=== PATIENT | female | born 1995 | race Caucasian/White ===

== ENCOUNTER → 2017-05-05 | Outpatient (REF) | payer BC ==
[2017-05-05 18:51] LABS: MEAN CORPUSCULAR HEMOGLOBIN 30.6 pg (27.0-33.0); MEAN CORPUSCULAR HGB CONC 33.6 g/dl (32.0-36.5); MEAN CORPUSCULAR VOLUME 91.1 fl (80.0-96.0); PLATELET COUNT, AUTOMATED 278 10^3/uL (150-450); RED CELL DISTRIBUTION WIDTH 11.9 % (11.5-14.5)
[2017-05-05 19:11] LABS: HCG, SERUM QUANTITATIVE 1709 MIU/ML
[2017-05-06 10:28] LABS: HBsAg Prenatal NEGATIVE (NEGATIVE)
== END ==
LOC: M LAB REF 16:23
PROVIDERS: ATTEND Obstetrics & Gynecology
DX: O36.80X0 Pregnancy with inconclusive fetal viability, not applicable or unspecified (principal); Z3A.00 Weeks of gestation of pregnancy not specified

== ENCOUNTER 2017-05-20 17:27 | Emergency (ER) | payer BC, OTHER ==
[2017-05-20 19:15] LABS: KETONE, URINE AUTO RFX NEGATIVE (NEGATIVE); LEUKOCYTE ESTERASE UR AUTO RFX NEGATIVE (NEGATIVE); NITRITE, URINE AUTO RFX NEGATIVE (NEGATIVE); RBC, URINE AUTO RFX 1 /HPF (0-3); SPECIFIC GRAVITY UR AUTO RFX 1.011 (1.002-1.035); SQUAM EPITHELIAL CELL UR AURFX 1 /HPF (0-6); WBC, URINE AUTO RFX 1 /HPF (0-3)
[2017-05-20 19:31] LABS: BASO % 0.2 % (0.0-1.0); EOS % 0.2 % (0.0-3.0); HEMATOCRIT 42.1 % (36.0-47.0); HEMOGLOBIN 14.1 g/dl (12.0-16.0); IMMATURE GRANULOCYTE % 0.3 % (0-0); LYMPH # 2.5 10^3/uL (1.5-6.5); LYMPH % 19.7 % (24.0-44.0); MEAN CORPUSCULAR HEMOGLOBIN 30.6 pg (27.0-33.0); MEAN CORPUSCULAR HGB CONC 33.5 g/dl (32.0-36.5); MEAN CORPUSCULAR VOLUME 91.3 fl (80.0-96.0); MONO # 0.9 10^3/uL (0.0-0.8); MONO % 7.2 % (0.0-5.0); NEUTROPHILS # 9.1 10^3/uL (1.8-7.7); NEUTROPHILS % 72.4 % (36.0-66.0); PLATELET COUNT, AUTOMATED 299 10^3/uL (150-450); RED BLOOD COUNT 4.61 10^6/uL (4.00-5.40); RED CELL DISTRIBUTION WIDTH 11.7 % (11.5-14.5); WHITE BLOOD COUNT 12.6 10^3/uL (4.0-10.0)
[2017-05-20 19:57] LABS: ANION GAP 6 MEQ/L (8-16); BLOOD UREA NITROGEN 10 MG/DL (7-18); CALCIUM LEVEL 8.6 MG/DL (8.5-10.1); CARBON DIOXIDE LEVEL 29 MEQ/L (21-32); CHLORIDE LEVEL 105 MEQ/L (98-107); CREATININE FOR GFR 0.73 MG/DL (0.55-1.02); GLOMERULAR FILTRATION RATE > 60.0 (>60); GLUCOSE, FASTING 111 MG/DL (70-105); POTASSIUM SERUM 3.3 MEQ/L (3.5-5.1); SODIUM LEVEL 140 MEQ/L (136-145)
[2017-05-20] MEDS: ACETAMINOPHEN 325 MG TAB PO (20:11)
[2017-05-20 20:14] LABS: HCG, SERUM QUANTITATIVE 1871 MIU/ML
[2017-05-20 21:09] LABS: CHLAMYDIA DNA AMPLIFICATION NEGATIVE (NEGATIVE); GC DNA AMPLIFICATION NEGATIVE (NEGATIVE)
== END 2017-05-20 21:58 | disposition home or self-care (01) ==
LOC: M ED 17:27
DX: O03.4 Incomplete spontaneous abortion without complication (principal); N83.291 Other ovarian cyst, right side; Z79.899 Other long term (current) drug therapy
CPT/HCPCS: 76801

== ENCOUNTER → 2017-05-29 | Outpatient (CLI) | payer BC, OTHER ==
[2017-05-29 18:30] LABS: HCG, SERUM QUANTITATIVE 102 MIU/ML
== END ==
LOC: M WUC 13:13
DX: Z32.01 Encounter for pregnancy test, result positive (principal)
CPT/HCPCS: 84702

== ENCOUNTER → 2017-07-21 | Outpatient (CLI) | payer BC, OTHER ==
[2017-07-21 13:42] LABS: BASO % 0.2 % (0.0-1.0); EOS % 0.2 % (0.0-3.0); HEMATOCRIT 42.3 % (36.0-47.0); HEMOGLOBIN 14.1 g/dl (12.0-16.0); IMMATURE GRANULOCYTE % 0.4 % (0-3.0); LYMPH # 1.7 10^3/uL (1.5-6.5); LYMPH % 20.3 % (24.0-44.0); MEAN CORPUSCULAR HEMOGLOBIN 30.5 pg (27.0-33.0); MEAN CORPUSCULAR HGB CONC 33.3 g/dl (32.0-36.5); MEAN CORPUSCULAR VOLUME 91.4 fl (80.0-96.0); MONO # 0.6 10^3/uL (0.0-0.8); MONO % 7.2 % (0.0-5.0); NEUTROPHILS % 71.7 % (36.0-66.0); PLATELET COUNT, AUTOMATED 279 10^3/uL (150-450); RED BLOOD COUNT 4.63 10^6/uL (4.00-5.40); RED CELL DISTRIBUTION WIDTH 11.8 % (11.5-14.5); WHITE BLOOD COUNT 8.4 10^3/uL (4.0-10.0)
[2017-07-21 15:51] LABS: CHLAMYDIA DNA AMPLIFICATION NEGATIVE (NEGATIVE); GC DNA AMPLIFICATION NEGATIVE (NEGATIVE)
[2017-07-22 11:53] LABS: HBsAg Prenatal NEGATIVE (NEGATIVE)
[2017-07-22 12:13] LABS: HEPATITIS C VIRUS ABY INDEX 0.1 INDEX (<0.8)
[2017-07-22 12:14] LABS: HIV 1&2 SCREEN CENTAUR NEGATIVE (NEGATIVE)
[2017-07-22 13:33] LABS: RUBELLA IgG QUALITATIVE IMMUNE (IMMUNE)
== END ==
LOC: M SMT 08:45
DX: Z34.81 Encounter for supervision of other normal pregnancy, first trimester (principal); Z3A.09 9 weeks gestation of pregnancy

== ENCOUNTER → 2017-10-04 | Outpatient (CLI) | payer OTHER, BC | LOC: M RAD 16:45 | DX: Z34.82 Encounter for supervision of other normal pregnancy, second trimester (principal) ==

== ENCOUNTER → 2017-10-28 | Outpatient (CLI) | payer OTHER, BC | LOC: M RAD 16:50 | DX: Z36.89 Encounter for other specified antenatal screening (principal); Z3A.22 22 weeks gestation of pregnancy | CPT/HCPCS: 76816 ==

== ENCOUNTER → 2017-11-28 | Outpatient (CLI) | payer OTHER, BC ==
[2017-11-28 09:38] LABS: HEMATOCRIT 34.6 % (36.0-47.0); HEMOGLOBIN 11.5 g/dl (12.0-15.5); MEAN CORPUSCULAR HEMOGLOBIN 31.9 pg (27.0-33.0); MEAN CORPUSCULAR HGB CONC 33.2 g/dl (32.0-36.5); MEAN CORPUSCULAR VOLUME 96.1 fl (80.0-96.0); PLATELET COUNT, AUTOMATED 226 10^3/uL (150-450); RED CELL DISTRIBUTION WIDTH 12.9 % (11.5-14.5); WHITE BLOOD COUNT 10.9 10^3/uL (4.0-10.0)
[2017-11-28 10:08] LABS: GLUCOSE CHALLENGE TEST 1 HOUR 125 MG/DL (LESS THAN 140)
== END ==
LOC: M SMT 07:59
DX: Z34.82 Encounter for supervision of other normal pregnancy, second trimester (principal); Z36.89 Encounter for other specified antenatal screening
CPT/HCPCS: 82950

== ENCOUNTER → 2018-01-08 | Outpatient (REF) | payer BC, OTHER ==
[2018-01-08 21:56] LABS: APPEARANCE, URINE CLOUDY (CLEAR); BACTERIA, URINE AUTO 1+ (NEGATIVE); BILIRUBIN, URINE AUTO NEGATIVE (NEGATIVE); BLOOD, URINE BLOOD 1+ (NEGATIVE); COLOR, URINE YELLOW (YELLOW); GLUCOSE, URINE (UA) AUTO 1+ mg/dL (NEGATIVE); KETONE, URINE AUTO NEGATIVE (NEGATIVE); LEUKOCYTE ESTERASE, URINE AUTO 2+ (NEGATIVE); MUCUS, URINE SMALL (NEGATIVE); NITRITE, URINE AUTO NEGATIVE (NEGATIVE); PROTEIN, URINE AUTO 2+ mg/dL (NEGATIVE); RBC, URINE AUTO 70 /HPF (0-3); SPECIFIC GRAVITY URINE AUTO 1.021 (1.002-1.035); SQUAMOUS EPITHELIAL CELL UR AU 4 /HPF (0-6); UROBILINOGEN, URINE AUTO 0.2 mg/dL (0.0-2.0); WBC, URINE AUTO TNTC /HPF (0-3)
== END ==
LOC: M LAB REF 21:40
DX: N39.0 Urinary tract infection, site not specified (principal)
CPT/HCPCS: 81001

== ENCOUNTER → 2018-01-20 | Outpatient (REF) | payer BC, OTHER | LOC: M LAB REF 13:05 | DX: Z34.83 Encounter for supervision of other normal pregnancy, third trimester (principal); Z36.89 Encounter for other specified antenatal screening | CPT/HCPCS: 87086 ==

== ENCOUNTER → 2018-02-03 | Outpatient (REF) | payer BC, OTHER | LOC: M LAB REF 13:34 | DX: Z34.83 Encounter for supervision of other normal pregnancy, third trimester (principal) | CPT/HCPCS: 87081 ==

== ENCOUNTER → 2018-02-14 | Outpatient (CLI) | payer BC, OTHER ==
[2018-02-16 00:07] LABS: ANTI PARVO VIRUS LEVEL IgM 0.2 index (0.0-0.8)
== END ==
LOC: M SMT 08:57
DX: Z34.03 Encounter for supervision of normal first pregnancy, third trimester (principal)
CPT/HCPCS: 86747

== ENCOUNTER → 2018-02-17 | Outpatient (CLI) | payer BC, OTHER ==
[2018-02-17 14:12] LABS: BASO % 0.3 % (0.0-1.0); EOS # 0.3 10^3/uL (0.0-0.50); EOS % 2.5 % (0.0-3.0); HEMATOCRIT 35.4 % (36.0-47.0); HEMOGLOBIN 11.5 g/dl (12.0-15.5); IMMATURE GRANULOCYTE % 0.7 % (0-3.0); LYMPH # 1.7 10^3/uL (1.5-6.5); LYMPH % 16.2 % (24.0-44.0); MEAN CORPUSCULAR HEMOGLOBIN 29.6 pg (27.0-33.0); MEAN CORPUSCULAR HGB CONC 32.5 g/dl (32.0-36.5); MONO # 0.9 10^3/uL (0.0-0.8); MONO % 8.7 % (0.0-5.0); NEUTROPHILS # 7.4 10^3/uL (1.8-7.7); NEUTROPHILS % 71.6 % (36.0-66.0); PLATELET COUNT, AUTOMATED 227 10^3/uL (150-450); RED BLOOD COUNT 3.89 10^6/uL (4.00-5.40); WHITE BLOOD COUNT 10.4 10^3/uL (4.0-10.0)
[2018-02-17 14:13] LABS: ALBUMIN 3.1 GM/DL (3.2-5.2); ALBUMIN/GLOBULIN RATIO 0.79 (1.00-1.93); ALKALINE PHOSPHATASE 188 U/L (45-117); ALT/SGPT 15 U/L (12-78); AST/SGOT 18 U/L (7-37); BILIRUBIN,DIRECT < 0.1 MG/DL (0.0-0.2); BILIRUBIN,TOTAL 0.3 MG/DL (0.2-1.0)
[2018-02-21 00:07] LABS: BILE ACIDS FRACTIONATED 10.9 umol/L (4.7-24.5)
== END ==
LOC: M SMT 08:54
DX: R21 Rash and other nonspecific skin eruption (principal)
CPT/HCPCS: 80076

== ENCOUNTER 2018-02-25 00:56 | Inpatient (IN) | payer BC, OTHER ==
[2018-02-25 01:54] LABS: HEMOGLOBIN 11.3 g/dl (12.0-15.5); MEAN CORPUSCULAR HEMOGLOBIN 29.8 pg (27.0-33.0); MEAN CORPUSCULAR HGB CONC 33.2 g/dl (32.0-36.5); MEAN CORPUSCULAR VOLUME 89.7 fl (80.0-96.0); PLATELET COUNT, AUTOMATED 212 10^3/uL (150-450); RED BLOOD COUNT 3.79 10^6/uL (4.00-5.40); RED CELL DISTRIBUTION WIDTH 13.2 % (11.5-14.5); WHITE BLOOD COUNT 10.9 10^3/uL (4.0-10.0)
[2018-02-25] MEDS: miSOPROStol 50 MCG 1/2 TAB (S0191) PO ×3 (01:55→10:06)
[2018-02-25] MEDS: FAMOTIDINE 20 MG TAB PO (10:13)
[2018-02-25] MEDS ORDERED: miSOPROStol 50 MCG 1/2 TAB (S0191) PV (14:00)
[2018-02-25] MEDS: miSOPROStol 100 MCG TAB (S0191) PO (14:09)
[2018-02-25] MEDS: LR 1,000 ML IV (19:50)
[2018-02-25] MEDS: OXYTOCIN DRIP 30 UNITS in APPROPRIATE DILUENT 1 EA IV (19:53)
[2018-02-26] MEDS: BUTORPHANOL 2 MG/ML INJ (J0595) IV ×2 (01:51→05:57)
[2018-02-26] MEDS: PROMETHAZINE INJ 25 MG/ML VIAL (J2550) IV ×2 (01:56→06:05)
[2018-02-26] MEDS: FAMOTIDINE 20 MG TAB PO (08:35)
[2018-02-26] MEDS ORDERED: FENTANYL 2MCG/ML ROPIVACAINE 0.2% IN 0.9% NACL 200ML IVBAG As Ordered (09:14)
[2018-02-26] MEDS: LR 1,000 ML IV ×2 (09:24→13:36)
[2018-02-26 10:06] LABS: HEMATOCRIT 34.9 % (36.0-47.0); HEMOGLOBIN 11.4 g/dl (12.0-15.5); MEAN CORPUSCULAR HEMOGLOBIN 29.6 pg (27.0-33.0); MEAN CORPUSCULAR HGB CONC 32.7 g/dl (32.0-36.5); MEAN CORPUSCULAR VOLUME 90.6 fl (80.0-96.0); PLATELET COUNT, AUTOMATED 208 10^3/uL (150-450); RED BLOOD COUNT 3.85 10^6/uL (4.00-5.40); RED CELL DISTRIBUTION WIDTH 13.2 % (11.5-14.5); WHITE BLOOD COUNT 15.5 10^3/uL (4.0-10.0)
[2018-02-26] MEDS: FENTANYL/ROPIVACAINE/NACL BAG 200 ML EPIDURAL (11:14)
[2018-02-26] MEDS ORDERED: ePHEDrine SULFATE 25 MG/5 ML(5MG/ML) SYRINGE IV (12:00)
[2018-02-26] MEDS ORDERED: diphenhydrAMINE INJ 50MG/ML VIAL (J1200) IV (12:00)
[2018-02-26] MEDS ORDERED: LACTATED RINGER'S 1000 ML IV (12:00)
[2018-02-26] MEDS ORDERED: ONDANSETRON 4MG/2ML VIAL (J2405) IV (12:00)
[2018-02-26] MEDS ORDERED: REFRIGERATOR IV KEYS XX (12:00)
[2018-02-26] MEDS ORDERED: EPIDURAL/PCA KEYS XX (12:00)
[2018-02-26] MEDS ORDERED: NALOXONE INJ 0.4 MG/1 ML VIAL (J2310) IV (12:00)
[2018-02-26] MEDS ORDERED: EPIDURAL COMMENT XX (12:00)
[2018-02-26] MEDS ORDERED: METHYLERGONOVINE MALEATE 0.2 MG/ML VIAL (J2210) As Ordered ×3 (16:32→16:33)
[2018-02-26] MEDS: OXYTOCIN DRIP 30 UNITS in APPROPRIATE DILUENT 1 EA IV (16:38)
[2018-02-26] MEDS: METHYLERGONOVINE MALEATE 0.2 MG/ML VIAL (J2210) IM (16:40)
[2018-02-26] MEDS ORDERED: ANUSOL HC CREAM 30GM TOP (17:15)
[2018-02-26] MEDS ORDERED: METHYLERGONOVINE MALEATE 0.2 MG TAB PO (17:15)
[2018-02-26] MEDS ORDERED: MEASLES,MUMPS,RUBELLA VACCINE INJ (MMR-II) (90707) SC (17:15)
[2018-02-26] MEDS ORDERED: DOCUSATE SODIUM 100 MG CAP PO (17:15)
[2018-02-26] MEDS ORDERED: DIBUCAINE 1% OINTMENT 30GM TOP (17:15)
[2018-02-26] MEDS ORDERED: ACETAMINOPHEN 500 MG TAB PO (17:15)
[2018-02-26] MEDS ORDERED: RHOGAM 300 MCG (1500 IU) INJ (J2790) IM (17:15)
[2018-02-26] MEDS: LIDOCAINE 1% MDV 20ML VIAL INFIL (17:30)
[2018-02-26] MEDS: IBUPROFEN 800 MG TAB PO (18:13)
[2018-02-27] MEDS: PRENATAL VITAMINS CHEWABLE TABLET PO (08:21)
[2018-02-27] MEDS: IBUPROFEN 800 MG TAB PO ×2 (13:45→23:09)
[2018-02-28] MEDS: PRENATAL VITAMINS CHEWABLE TABLET PO (10:03)
== END 2018-02-28 10:30 | disposition home or self-care (01) | DRG 560 ==
LOC: M LDI 00:56 → M OBS 02-26 18:45
PROVIDERS: Advanced Practice Midwife
PROC: 10E0XZZ Delivery of Products of Conception, External Approach (ICD-10-PCS; principal; 2018-02-25)
PROC: 3E033VJ Introduction of Other Hormone into Peripheral Vein, Percutaneous Approach (ICD-10-PCS; 2018-02-25)
DX: O26.62 Liver and biliary tract disorders in childbirth (principal); K83.1 Obstruction of bile duct; Z37.0 Single live birth; Z3A.39 39 weeks gestation of pregnancy

== ENCOUNTER → 2019-11-30 | Outpatient (CLI) | payer BC ==
[~2019-11-30] MED LIST: IBUP-1114 PO; KEFL500C17 PO; MAPA500T2 PO; PRENTAB55 PO; ZANT150T40 PO
--- NOTE | 2019-12-01 08:06 | REP ---
REASON: Wrist pain. FINDINGS: No acute fracture or destructive osseous lesion. Electronically Signed by Roman Morris DO 12/01/2019 09:12 A
== END ==
LOC: M RAD 15:45
PROVIDERS: ATTEND Family Medicine
DX: M25.531 Pain in right wrist (principal)

== ENCOUNTER 2020-03-14 13:06 | Emergency (ER) | payer BC ==
[~2020-03-14] VITALS: Ht 162.6 cm; Wt 75.7 kg
[~2020-03-14 13:06] MED LIST changes: -KEFL500C17 PO
[2020-03-14 14:32] LABS: BASO % 0.2 % (0.0-1.0); EOS % 0.2 % (0.0-3.0); HEMOGLOBIN 14.2 g/dl (12.0-15.5); LYMPH # 2.1 10^3/uL (1.5-5.0); LYMPH % 24.9 % (24.0-44.0); MEAN CORPUSCULAR HEMOGLOBIN 30.5 pg (27.0-33.0); MEAN CORPUSCULAR VOLUME 92.3 fl (80.0-96.0); MONO # 0.6 10^3/uL (0.0-0.8); MONO % 6.9 % (0.0-5.0); NEUTROPHILS # 5.7 10^3/uL (1.5-8.5); NEUTROPHILS % 67.4 % (36.0-66.0); PLATELET COUNT, AUTOMATED 319 10^3/uL (150-450); RED BLOOD COUNT 4.66 10^6/uL (4.00-5.40); WHITE BLOOD COUNT 8.5 10^3/uL (4.0-10.0)
[2020-03-14 14:46] LABS: BACTERIA, URINE MOD AMOUNT; BILIRUBIN, URINE MANUAL NEGATIVE (NEGATIVE); GLUCOSE, URINE (UA) MANUAL NEGATIVE (NEGATIVE); KETONE, URINE MANUAL NEGATIVE (NEGATIVE); RBC, URINE TNTC /hpf (0-3); SQUAMOUS EPITHELIAL CELL URINE SMALL AMOUNT /hpf (SMALL AMT); UROBILINOGEN, URINE MANUAL NORMAL (NORMAL)
[2020-03-14 14:47] LABS: MUCUS, URINE SMALL AMOUNT (NEGATIVE)
[2020-03-14 14:53] LABS: BLOOD UREA NITROGEN 12 MG/DL (7-18); CALCIUM LEVEL 9.4 MG/DL (8.5-10.1); CARBON DIOXIDE LEVEL 28 MEQ/L (21-32); CHLORIDE LEVEL 103 MEQ/L (98-107); CREATININE FOR GFR 0.86 MG/DL (0.55-1.30); GLOMERULAR FILTRATION RATE > 60.0 (>60); GLUCOSE, FASTING 93 MG/DL (70-100); HCG, SERUM QUANTITATIVE 81 MIU/ML; POTASSIUM SERUM 3.8 MEQ/L (3.5-5.1); SODIUM LEVEL 138 MEQ/L (136-145)
--- NOTE | 2020-03-14 15:07 | REP ---
INDICATION: pelvic pain/bleeding; LMP- 01/31/20. COMPARISON: None. TECHNIQUE: Transabdominal and transvaginal scanning are included. FINDINGS: Uterine dimensions are normal at 7.3 x 4.2 x 4.6 cm. Endometrial echo is 0.5 cm thick. No intrauterine gestation is seen. No free fluid is noted. No adnexal mass is seen. Normal right ovary measures 2.4 x 1.3 x 2.1 cm. Doppler flow is present in the right ovary, resistive index 0.51. Left ovary measures 3.1 x 2.0 x 1.8 cm. It contains a 1.3 cm hypoechoic follicle. Doppler flow is present in the left ovary. Resistive index is 0.50. IMPRESSION: No morphologic abnormality. No intrauterine gestation is seen. The findings are nonspecific. Clinical and possibly sonographic follow-up recommended given the positive test. <Electronically signed by Barron Camacho > 03/14/20 [id number]
[2020-03-14] MEDS ORDERED: KEFL500C17 PO (16:16)
[2020-03-14 16:22] VITALS: BP 132/85
== END 2020-03-14 16:31 | disposition home or self-care (01) ==
LOC: M ED 13:06
DX: O20.0 Threatened abortion (principal); Z3A.00 Weeks of gestation of pregnancy not specified

== ENCOUNTER → 2020-03-16 | Outpatient (CLI) | payer BC ==
[~2020-03-16] MED LIST changes: +KEFL500C17 PO
== END ==
LOC: M WUC 15:03
PROVIDERS: ATTEND Emergency Medicine
DX: O03.9 Complete or unspecified spontaneous abortion without complication (principal)

== ENCOUNTER → 2020-04-22 | Outpatient (CLI) | payer SELFPAY | LOC: M LABSMTC 17:36 | PROVIDERS: ATTEND Pediatrics | DX: Z11.59 Encounter for screening for other viral diseases (principal) ==

== ENCOUNTER → 2020-06-17 | Outpatient (REF) | payer BC ==
[2020-06-17 14:26] LABS: HEMATOCRIT 42.4 % (36.0-47.0); HEMOGLOBIN 14.1 g/dl (12.0-15.5); MEAN CORPUSCULAR HEMOGLOBIN 30.9 pg (27.0-33.0); MEAN CORPUSCULAR HGB CONC 33.3 g/dl (32.0-36.5); MEAN CORPUSCULAR VOLUME 92.8 fl (80.0-96.0); PLATELET COUNT, AUTOMATED 276 10^3/uL (150-450); RED BLOOD COUNT 4.57 10^6/uL (4.00-5.40); WHITE BLOOD COUNT 8.7 10^3/uL (4.0-10.0)
[2020-06-17 15:43] LABS: HEPATITIS C VIRUS ABY INDEX < 0.0 INDEX (<0.8); HIV 1&2 SCREEN CENTAUR NEGATIVE (NEGATIVE)
[2020-06-17 16:08] LABS: CHLAMYDIA DNA AMPLIFICATION NEGATIVE (NEGATIVE); GC DNA AMPLIFICATION NEGATIVE (NEGATIVE)
== END ==
LOC: M PLALAB 09:37
PROVIDERS: ATTEND Advanced Practice Midwife
DX: Z34.91 Encounter for supervision of normal pregnancy, unspecified, first trimester (principal)

== ENCOUNTER → 2020-08-12 | Outpatient (REF) | payer BC | LOC: M SFHCWAGY 13:32 | PROVIDERS: ATTEND Advanced Practice Midwife | DX: Z36.89 Encounter for other specified antenatal screening (principal); Z3A.15 15 weeks gestation of pregnancy ==

== ENCOUNTER → 2020-09-03 | Outpatient (CLI) | payer BC ==
--- NOTE | 2020-09-03 12:11 | REP ---
INDICATION: ANATOMY COMPARISON: None. TECHNIQUE: Transabdominal obstetrical ultrasound with color Doppler evaluation. FINDINGS: Examination demonstrates a single live intrauterine in breech presentation. motion is identified by technologist. Placenta is noted posterior and grade 1 without evidence for placenta previa or abruption. Few anechoic areas within the placenta may represent venous lakes. Amniotic fluid volume is normal. Cervix measures 4.4 cm in length and appears closed. Gestational age by LMP 18 weeks 6 days with BABS 01/29/2021. Gestational age by current measurements 19 weeks 3 days with BABS 01/25/2021. FHR equals 163 beats per minute. BPD: 4.2 cm at there is 18 weeks 6 days HC: 15.6 cm at 18 weeks 4 days AC: 15.0 cm at 20 weeks 2 days FL: 3.2 cm at there is 20 weeks 2 days HL: 2.9 cm at 19 weeks 3 days HC/AC: 1.04 Estimated weight 321 grams (greater than 97thpercentile based on age by given BABS). Anatomical assessment demonstrates normal structures including cranium, choroid plexus, cavum, cerebellum/posterior fossa, facial features, lungs, ventricular outflow tracts, diaphragm, stomach, cord insertion/three-vessel cord, kidneys/bladder, spine, and extremities. IMPRESSION: 1. Few suspected venous lakes within the placenta. 2. Limited evaluation of the heart due to positioning. Technologist also describes increased echogenicity within the abdomen which is not readily apparent on given images and a relatively nonspecific finding. Consider follow-up ultrasound examination if necessary. 3. Remainder of the anatomical assessment is complete and normal. 4. Greater than expected interval growth based on age by EDC. <Electronically signed by Andre Sal > 09/03/20 [id number]
== END ==
LOC: M WHC 09:00
PROVIDERS: ATTEND Advanced Practice Midwife
DX: Z36.89 Encounter for other specified antenatal screening (principal); Z3A.15 15 weeks gestation of pregnancy

== ENCOUNTER → 2020-09-29 | Outpatient (CLI) | payer BC ==
--- NOTE | 2020-09-29 15:46 | REP ---
INDICATION: F/U ANATOMY COMPARISON: 09/03/2020 TECHNIQUE: Transabdominal obstetrical ultrasound with color Doppler evaluation. FINDINGS: Examination demonstrates a single live intrauterine in breech presentation. motion is identified by technologist. Placenta is noted posterior and grade 1 without evidence for placenta previa or abruption. Amniotic fluid volume is normal. Cervix measures 4.4 cm in length and appears closed. No significant placental abnormalities are identified. Gestational age by LMP 22 weeks 4 days with BABS 01/29/2021. Gestational age by current measurements 22 weeks 4 days with BABS 01/29/2021. FHR equals 149 beats per minute. Estimated weight 498 grams (45thpercentile). Anatomical assessment demonstrates normal structures including four-chamber heart/ventricular outflow tracts. IMPRESSION: Single live intrauterine in breech presentation demonstrating appropriate interval growth. In conjunction with prior examination anatomical assessment is complete and normal. <Electronically signed by Andre Sal > 09/29/20 [id number]
== END ==
LOC: M WHC 07:59
PROVIDERS: ATTEND Obstetrics & Gynecology
DX: Z34.82 Encounter for supervision of other normal pregnancy, second trimester (principal)

== ENCOUNTER → 2020-11-04 | Outpatient (REF) | payer BC ==
[2020-11-04 10:01] LABS: HEMATOCRIT 36.8 % (36.0-47.0); MEAN CORPUSCULAR HEMOGLOBIN 31.4 pg (27.0-33.0); MEAN CORPUSCULAR HGB CONC 32.6 g/dl (32.0-36.5); MEAN CORPUSCULAR VOLUME 96.3 fl (80.0-96.0); PLATELET COUNT, AUTOMATED 219 10^3/uL (150-450); RED BLOOD COUNT 3.82 10^6/uL (4.00-5.40); WHITE BLOOD COUNT 8.4 10^3/uL (4.0-10.0)
== END ==
LOC: M PLALAB 08:01
PROVIDERS: ATTEND Advanced Practice Midwife
DX: Z34.92 Encounter for supervision of normal pregnancy, unspecified, second trimester (principal); Z3A.00 Weeks of gestation of pregnancy not specified

== ENCOUNTER → 2020-12-31 | Outpatient (REF) | payer BC | LOC: M SFHCWAGY 10:04 | PROVIDERS: ATTEND Obstetrics & Gynecology | DX: Z34.83 Encounter for supervision of other normal pregnancy, third trimester (principal); Z3A.35 35 weeks gestation of pregnancy ==

== ENCOUNTER 2021-01-30 02:47 | Inpatient (IN) | payer BC ==
[2021-01-30] VITALS (32 sets, daily range): BP systolic 112–170; BP diastolic 62–102
[~2021-01-30] VITALS: Ht 162.6 cm; Wt 81.6 kg
[2021-01-30] MEDS ORDERED: HOME MED LIST COMPLETE! XX SCH (03:20)
[2021-01-30] MEDS ORDERED: LR 1,000 ML IV SCH (03:30)
[2021-01-30] MEDS ORDERED: OXYTOCIN DRIP 30 UNITS in IV 1 EA IV SCH ×4 (03:30)
[2021-01-30] MEDS ORDERED: CARBOPROST TROMETHAMINE 250 MCG/ML AMP IM PRN (03:30)
[2021-01-30] MEDS ORDERED: TRANEXAMIC ACID INJection 1,000 MG in NS 100 ML IV PRN (03:30)
[2021-01-30] MEDS ORDERED: METHYLERGONOVINE MALEATE 0.2 MG/ML VIAL (J2210) IM PRN (03:30)
[2021-01-30 03:56] LABS: HEMOGLOBIN 12.9 g/dl (12.0-15.5); MEAN CORPUSCULAR HEMOGLOBIN 30.2 pg (27.0-33.0); MEAN CORPUSCULAR HGB CONC 33.1 g/dl (32.0-36.5); MEAN CORPUSCULAR VOLUME 91.3 fl (80.0-96.0); PLATELET COUNT, AUTOMATED 183 10^3/uL (150-450); RED BLOOD COUNT 4.27 10^6/uL (4.00-5.40); WHITE BLOOD COUNT 9.3 10^3/uL (4.0-10.0)
[2021-01-30 04:33] LABS: ALBUMIN 2.7 GM/DL (3.2-5.2); ALT/SGPT 16 U/L (12-78); BILIRUBIN,TOTAL 0.2 MG/DL (0.2-1.0); BLOOD UREA NITROGEN 9 MG/DL (7-18); CALCIUM LEVEL 8.5 MG/DL (8.5-10.1); CARBON DIOXIDE LEVEL 21 MEQ/L (21-32); CHLORIDE LEVEL 108 MEQ/L (98-107); CREATININE FOR GFR 0.69 MG/DL (0.55-1.30); GLOMERULAR FILTRATION RATE > 60.0 (>60); GLUCOSE, FASTING 106 MG/DL (70-100); POTASSIUM SERUM 4.8 MEQ/L (3.5-5.1); SODIUM LEVEL 137 MEQ/L (136-145); TOTAL PROTEIN 7.2 GM/DL (6.4-8.2)
[2021-01-30] MEDS ORDERED: FENTANYL 2MCG/ML ROPIVACAINE 0.2% IN 0.9% NACL 100ML IVBAG As Ordered ONE (05:43)
[2021-01-30] MEDS ORDERED: EPIDURAL COMMENT XX SCH (06:30)
[2021-01-30] MEDS ORDERED: REFRIGERATOR IV KEYS XX PRN (06:30)
[2021-01-30] MEDS ORDERED: ePHEDrine SULFATE 25 MG/5 ML(5MG/ML) SYRINGE IV PRN (06:30)
[2021-01-30] MEDS ORDERED: ONDANSETRON 4MG/2ML VIAL IV PRN (06:30)
[2021-01-30] MEDS ORDERED: NALOXONE INJ 0.4MG/1ML VIAL (J2310 PER 1MG) IV PRN (06:30)
[2021-01-30] MEDS ORDERED: diphenhydrAMINE 50MG/ML VIAL (J1200) IV PRN (06:30)
[2021-01-30] MEDS ORDERED: FENTANYL/ROPIVACAINE/NACL BAG 100 ML EPIDURAL SCH (06:30)
[2021-01-30] MEDS ORDERED: EPIDURAL/PCA KEYS XX PRN (06:30)
[2021-01-30] MEDS ORDERED: LACTATED RINGER'S 1000 ML IV PRN (06:30)
[2021-01-30 07:48] LABS: CREATININE,RANDOM URINE 30.7 MG/DL; TOTAL PROTEIN,RANDOM URINE 10.6 MG/DL (0.0-12.0)
[2021-01-30] MEDS ORDERED: LABETALOL 100MG/20ML VIAL IV STA (08:19)
[2021-01-30] MEDS: PRENATAL VITAMINS CHEWABLE TABLET PO SCH (09:00)
[2021-01-30] MEDS ORDERED: LABETALOL 200 MG TAB PO SCH (09:00)
[2021-01-30] MEDS ORDERED: IBUPROFEN 800 MG TAB PO PRN (10:45)
[2021-01-30] MEDS ORDERED: IBUPROFEN 600MG TAB PO PRN (10:45)
[2021-01-30] MEDS ORDERED: DIBUCAINE 1% OINTMENT 30GM TOP PRN (10:45)
[2021-01-30] MEDS ORDERED: RHOGAM 300 MCG (1500 IU) INJ (J2790) IM SCH (10:45)
[2021-01-30] MEDS ORDERED: ACETAMINOPHEN TAB 650MG DOSE (2X325MG) PO PRN (10:45)
[2021-01-30] MEDS ORDERED: ACETAMINOPHEN 500 MG TAB PO PRN (10:45)
[2021-01-30] MEDS ORDERED: DOCUSATE SODIUM 100MG CAPSULE PO PRN (10:45)
[2021-01-30] MEDS ORDERED: MEASLES,MUMPS,RUBELLA VACCINE INJ (MMR-II) (90707) SC SCH (10:45)
[2021-01-30 10:49] LABS: CORD GAS ABE V -3.2; CORD GAS HCO3 V 23.4 MEQ/L; CORD GAS O2 SAT V 53.7 %; CORD GAS PCO2 V 47.5 mmHg; CORD GAS PH V 7.311 UNITS; CORD GAS PO2 V 24.5 mmHg; CORD GAS SBC V 20.7 MEQ/L; CORD GAS TCO2 V 24.9 MEQ/L
[2021-01-30 10:56] LABS: CORD GAS ABE A -3.1; CORD GAS HCO3 A 23.7 MEQ/L; CORD GAS O2 SAT A 51.6 %; CORD GAS PCO2 A 48.8 mmHg; CORD GAS PH A 7.304 UNITS; CORD GAS PO2 A 23.7 mmHg; CORD GAS SBC A 20.7 MEQ/L; CORD GAS TCO2 A 25.2 MEQ/L
[2021-01-31 05:37] VITALS: BP 117/77
[2021-01-31] MEDS: PRENATAL VITAMINS CHEWABLE TABLET PO SCH (09:00)
[2021-01-31] MEDS ORDERED: INFLUENZA QUADRIVALENT PF VACCINE 0.5ML SYRINGE IM ONE (16:00)
== END 2021-01-31 16:15 | disposition home or self-care (01) | DRG 560 ==
LOC: M LDO 02:47 → M LDI 03:26 → M OBS 13:42
PROVIDERS: ADMIT Obstetrics & Gynecology; ATTEND Advanced Practice Midwife
PROC: 10E0XZZ Delivery of Products of Conception, External Approach (ICD-10-PCS; principal; 2021-01-30)
PROC: 0HQ9XZZ Repair Perineum Skin, External Approach (ICD-10-PCS; 2021-01-30)
DX: O69.81X0 Labor and delivery complicated by cord around neck, without compression, not applicable or unspecified (principal); O70.0 First degree perineal laceration during delivery; Z3A.40 40 weeks gestation of pregnancy; Z37.0 Single live birth

== ENCOUNTER → 2021-06-20 | Outpatient (REF) | payer BC | LOC: M WUC 20:25 | PROVIDERS: ATTEND Physician Assistant | DX: J02.9 Acute pharyngitis, unspecified (principal) ==

== ENCOUNTER → 2021-08-10 | Outpatient (REF) | payer BC | LOC: M WUC 02:01 | PROVIDERS: ATTEND Physician Assistant | DX: N39.0 Urinary tract infection, site not specified (principal) ==

== ENCOUNTER → 2022-02-21 | Outpatient (CLI) | payer BC | LOC: M LABSMTC 11:07 | PROVIDERS: ATTEND Anesthesiology | DX: Z01.812 Encounter for preprocedural laboratory examination (principal); Z20.822 Contact with and (suspected) exposure to COVID-19 ==

== ENCOUNTER 2022-02-22 09:59 | Day surgery (SDC) | payer BC ==
[~2022-02-22] VITALS: Ht 162.6 cm; Wt 78.5 kg
[2022-02-22] MEDS ORDERED: LR 1,000 ML IV SCH (10:15)
[2022-02-22 10:29] VITALS: BP 142/94
[2022-02-22] MEDS ORDERED: propofoL 200 MG/20 ML VIAL As Ordered ONE (10:30)
[2022-02-22] MEDS ORDERED: LIDOCAINE 2% 100MG/5ML SDV (FOR ANES.) As Ordered ONE (10:30)
[2022-02-22] MEDS ORDERED: MIDAZOLAM INJ 2MG/2ML VIAL (J2250 PER 1MG) As Ordered ONE (10:30)
[2022-02-22] MEDS ORDERED: fentaNYL 100 MCG/2 ML INJECTION As Ordered ONE (10:30)
[2022-02-22] MEDS ORDERED: ONDANSETRON 4MG 2ML VIAL As Ordered ONE (10:31)
[2022-02-22] MEDS ORDERED: SUGAMMADEX SODIUM 500 MG/5 ML VIAL (BRIDION) As Ordered ONE (10:31)
[2022-02-22] MEDS ORDERED: ROCURONIUM BROMIDE 50 MG/5 ML VIAL As Ordered ONE (10:31)
[2022-02-22] MEDS ORDERED: dexameTHASONE 4 MG/ML 1ML VIAL (J1100 PER 1MG) As Ordered ONE (10:31)
== END 2022-02-22 10:32 | disposition home or self-care (01) ==
LOC: M SDC 09:59
PROVIDERS: ATTEND Otolaryngology
DX: J35.01 Chronic tonsillitis (principal); Z53.09 Procedure and treatment not carried out because of other contraindication; Z32.01 Encounter for pregnancy test, result positive

== ENCOUNTER → 2022-03-23 | Outpatient (CLI) | payer BC ==
[2022-03-23 15:51] LABS: HEMATOCRIT 41.6 % (36.0-47.0); HEMOGLOBIN 13.7 g/dl (12.0-15.5); MEAN CORPUSCULAR HEMOGLOBIN 30.7 pg (27.0-33.0); MEAN CORPUSCULAR HGB CONC 32.9 g/dl (32.0-36.5); MEAN CORPUSCULAR VOLUME 93.3 fl (80.0-96.0); PLATELET COUNT, AUTOMATED 288 10^3/uL (150-450); RED BLOOD COUNT 4.46 10^6/uL (4.00-5.40); WHITE BLOOD COUNT 10.8 10^3/uL (4.0-10.0)
[2022-03-23 17:16] LABS: GC DNA AMPLIFICATION NEGATIVE (NEGATIVE)
[2022-03-23 17:56] LABS: HEPATITIS C VIRUS ABY INDEX 0.2 INDEX (<0.8); HIV 1&2 SCREEN CENTAUR NEGATIVE (NEGATIVE)
== END ==
LOC: M PLALAB 12:34
PROVIDERS: ATTEND Obstetrics & Gynecology
DX: Z34.91 Encounter for supervision of normal pregnancy, unspecified, first trimester (principal)

== ENCOUNTER → 2022-06-07 | Outpatient (CLI) | payer BC | LOC: M WHC 14:50 | PROVIDERS: ATTEND Advanced Practice Midwife | DX: Z34.92 Encounter for supervision of normal pregnancy, unspecified, second trimester (principal); Z3A.19 19 weeks gestation of pregnancy ==

== ENCOUNTER → 2022-07-05 | Outpatient (CLI) | payer BC | LOC: M WHC 14:27 | PROVIDERS: ATTEND Advanced Practice Midwife | DX: Z34.82 Encounter for supervision of other normal pregnancy, second trimester (principal); Z3A.23 23 weeks gestation of pregnancy ==

== ENCOUNTER → 2022-07-27 | Outpatient (CLI) | payer BC ==
[2022-07-27 14:07] LABS: HEMATOCRIT 36.5 % (36.0-47.0); HEMOGLOBIN 11.7 g/dl (12.0-15.5); MEAN CORPUSCULAR HEMOGLOBIN 31.4 pg (27.0-33.0); MEAN CORPUSCULAR HGB CONC 32.1 g/dl (32.0-36.5); MEAN CORPUSCULAR VOLUME 97.9 fl (80.0-96.0); PLATELET COUNT, AUTOMATED 218 10^3/uL (150-450); RED BLOOD COUNT 3.73 10^6/uL (4.00-5.40); WHITE BLOOD COUNT 10.7 10^3/uL (4.0-10.0)
== END ==
LOC: M PLALAB 08:22
PROVIDERS: ATTEND Advanced Practice Midwife
DX: Z34.92 Encounter for supervision of normal pregnancy, unspecified, second trimester (principal)

== ENCOUNTER → 2022-10-05 | Outpatient (CLI) | payer BC ==
[2022-10-05 11:12] LABS: HEMATOCRIT 33.7 % (36.0-47.0); HEMOGLOBIN 10.6 g/dl (12.0-15.5); MEAN CORPUSCULAR HEMOGLOBIN 27.5 pg (27.0-33.0); MEAN CORPUSCULAR HGB CONC 31.5 g/dl (32.0-36.5); MEAN CORPUSCULAR VOLUME 87.5 fl (80.0-96.0); PLATELET COUNT, AUTOMATED 217 10^3/uL (150-450); RED BLOOD COUNT 3.85 10^6/uL (4.00-5.40); WHITE BLOOD COUNT 10.8 10^3/uL (4.0-10.0)
[2022-10-05 11:59] LABS: LDH LACTATE DEHYDROGENASE 180 U/L (120-246)
[2022-10-05 12:00] LABS: ALT/SGPT 12 U/L (7.0-40); AST/SGOT 14 U/L (<34); BILIRUBIN,TOTAL 0.3 MG/DL (0.3-1.2); CREATININE FOR GFR 0.61 MG/DL (0.55-1.30); GLOMERULAR FILTRATION RATE > 60.0 (>60)
[2022-10-05 12:02] LABS: TOTAL PROTEIN,RANDOM URINE 21.2 MG/DL (0.0-14.0)
[2022-10-05 12:03] LABS: CREATININE,RANDOM URINE 122.9 MG/DL
== END ==
LOC: M PLALAB 08:46
PROVIDERS: ATTEND Advanced Practice Midwife
DX: O13.9 Gestational [pregnancy-induced] hypertension without significant proteinuria, unspecified trimester (principal)

== ENCOUNTER 2022-10-27 16:23 | Inpatient (IN) | payer BC ==
[~2022-10-27] VITALS: Ht 162.6 cm; Wt 88.0 kg
[2022-10-27] VITALS (8 sets, daily range): BP systolic 112–176; BP diastolic 62–99
[2022-10-27] MEDS ORDERED: OXYTOCIN INJ 10UNITS/ML 1ML VIAL IM PRN (16:40)
[2022-10-27] MEDS ORDERED: LIDOCAINE 1% MDV 20ML VIAL INFIL PRN (16:40)
[2022-10-27] MEDS ORDERED: OXYTOCIN DRIP 30 UNITS in IV 1 EA IV PRN ×4 (16:40)
[2022-10-27] MEDS ORDERED: TRANEXAMIC ACID INJection 1,000 MG in NS 100 ML IV PRN (16:40)
[2022-10-27] MEDS ORDERED: METHYLERGONOVINE MALEATE 0.2MG/ML 1ML VIAL IM PRN (16:40)
[2022-10-27] MEDS ORDERED: CARBOPROST TROMETHAMINE 250 MCG/ML AMP IM PRN (16:40)
[2022-10-27] MEDS ORDERED: OMEP10CASR PO (16:51)
[2022-10-27] MEDS ORDERED: PEPC40TA12 PO (16:51)
[2022-10-27] MEDS ORDERED: PRENTAB9 PO (16:51)
[2022-10-27] MEDS ORDERED: HOME MED LIST COMPLETE! XX SCH (16:55)
[2022-10-27] MEDS: miSOPROStol 50MCG 1/2 TABLET PO SCH ×2 (17:31→21:47)
[2022-10-27 17:48] LABS: HEMATOCRIT 31.6 % (36.0-47.0); HEMOGLOBIN 9.9 g/dl (12.0-15.5); MEAN CORPUSCULAR HEMOGLOBIN 26.1 pg (27.0-33.0); MEAN CORPUSCULAR HGB CONC 31.3 g/dl (32.0-36.5); MEAN CORPUSCULAR VOLUME 83.4 fl (80.0-96.0); PLATELET COUNT, AUTOMATED 224 10^3/uL (150-450); RED BLOOD COUNT 3.79 10^6/uL (4.00-5.40)
[2022-10-27 18:05] LABS: URIC ACID 4.8 MG/DL (3.1-7.8)
[2022-10-27 18:07] LABS: LDH LACTATE DEHYDROGENASE 175 U/L (120-246)
[2022-10-27 18:08] LABS: ALT/SGPT < 9 U/L (7.0-40); AST/SGOT 8 U/L (<34); BILIRUBIN,TOTAL 0.3 MG/DL (0.3-1.2); CREATININE FOR GFR 0.58 MG/DL (0.55-1.30); GLOMERULAR FILTRATION RATE > 60.0 (>60)
[2022-10-27 19:57] LABS: TOTAL PROTEIN,RANDOM URINE 8.6 MG/DL (0.0-14.0)
[2022-10-27 20:02] LABS: CREATININE,RANDOM URINE 33.2 MG/DL
[2022-10-27] MEDS ORDERED: OXYTOCIN DRIP 30 UNITS in IV 1 EA IV SCH (21:45)
[2022-10-28] VITALS (33 sets, daily range): BP systolic 95–227; BP diastolic 54–129; O2SAT 92–98
[2022-10-28] MEDS: LR 1,000 ML IV SCH ×2 (02:04→04:50)
[2022-10-28] MEDS ORDERED: NALOXONE INJ 0.4MG/1ML VIAL IV PRN (02:50)
[2022-10-28] MEDS ORDERED: FENTANYL/ROPIVACAINE/NACL BAG 100 ML EPIDURAL SCH (02:50)
[2022-10-28] MEDS ORDERED: diphenhydrAMINE 50MG/ML VIAL IV PRN (02:50)
[2022-10-28] MEDS ORDERED: ONDANSETRON 4MG 2ML VIAL IV PRN (02:50)
[2022-10-28] MEDS ORDERED: ePHEDrine SULFATE 25 MG/5 ML(5MG/ML) SYRINGE IVP PRN (02:50)
[2022-10-28] MEDS ORDERED: LR 500 ML IV PRN (02:50)
[2022-10-28] MEDS ORDERED: EPIDURAL/PCA KEYS XX PRN (02:50)
[2022-10-28] MEDS ORDERED: DOCUSATE SODIUM 100MG CAPSULE PO PRN (07:35)
[2022-10-28] MEDS ORDERED: ACETAMINOPHEN 500 MG TAB PO PRN (07:35)
[2022-10-28] MEDS ORDERED: ACETAMINOPHEN TAB 650MG DOSE (2X325MG) PO PRN (07:35)
[2022-10-28] MEDS ORDERED: IBUPROFEN 800 MG TAB PO PRN (07:35)
[2022-10-28] MEDS ORDERED: DIBUCAINE 1% OINTMENT 30GM TOP PRN (07:35)
[2022-10-28] MEDS ORDERED: IBUPROFEN 600MG TAB PO PRN (07:35)
[2022-10-28] MEDS ORDERED: RHOGAM 300MCG (1500IU) INJ IM SCH (07:35)
[2022-10-28] MEDS: PRENATAL VITAMINS CHEWABLE TABLET PO SCH (09:00)
[2022-10-29 06:00] VITALS: BP 131/79; O2SAT 97
[2022-10-29] MEDS: PRENATAL VITAMINS CHEWABLE TABLET PO SCH (07:56)
[2022-10-30] MEDS ORDERED: MEASLES,MUMPS,RUBELLA VACCINE INJ (MMR-II) SC.IMMUN ONE (09:00)
== END 2022-10-29 11:15 | disposition home or self-care (01) | DRG 560 ==
LOC: M LDI 16:23 → M OBS 10-28 08:49
PROVIDERS: ADMIT Advanced Practice Midwife; ATTEND Advanced Practice Midwife
PROC: 3E0234Z Introduction of Serum, Toxoid and Vaccine into Muscle, Percutaneous Approach (ICD-10-PCS; 2022-10-27)
PROC: 10E0XZZ Delivery of Products of Conception, External Approach (ICD-10-PCS; principal; 2022-10-28)
PROC: 10907ZC Drainage of Amniotic Fluid, Therapeutic from Products of Conception, Via Natural or Artificial Opening (ICD-10-PCS; 2022-10-28)
PROC: 0HQ9XZZ Repair Perineum Skin, External Approach (ICD-10-PCS; 2022-10-28)
DX: O71.89 Other specified obstetric trauma (principal); O69.81X0 Labor and delivery complicated by cord around neck, without compression, not applicable or unspecified; Z37.0 Single live birth; Z3A.39 39 weeks gestation of pregnancy

== ENCOUNTER → 2022-11-14 | Outpatient (REF) | payer BC ==
[~2022-11-14] MED LIST changes: +OMEP10CASR PO; +PEPC40TA12 PO; +PRENTAB9 PO
[2022-11-14 20:13] LABS: APPEARANCE, URINE HAZY (CLEAR); BACTERIA, URINE AUTO NEGATIVE (NEGATIVE); BILIRUBIN, URINE AUTO NEGATIVE (NEGATIVE); BLOOD, URINE BLOOD 2+ (NEGATIVE); COLOR, URINE YELLOW (YELLOW); GLUCOSE, URINE (UA) AUTO NEGATIVE (NEGATIVE); KETONE, URINE AUTO NEGATIVE (NEGATIVE); LEUKOCYTE ESTERASE, URINE AUTO 3+ (NEGATIVE); MUCUS, URINE SMALL (NEGATIVE); NITRITE, URINE AUTO NEGATIVE (NEGATIVE); PROTEIN, URINE AUTO NEGATIVE (NEGATIVE); RBC, URINE AUTO 6 /HPF (0-3); SPECIFIC GRAVITY URINE AUTO 1.014 (1.002-1.035); SQUAMOUS EPITHELIAL CELL UR AU 4 /HPF (0-6); UROBILINOGEN, URINE AUTO 0.2 mg/dL (0.0-2.0); WBC, URINE AUTO 127 /HPF (0-3)
== END ==
LOC: M LAB REF 19:55
PROVIDERS: ATTEND Physician Assistant
DX: N39.0 Urinary tract infection, site not specified (principal)

== ENCOUNTER → 2023-04-11 | Outpatient (REF) | payer BC | LOC: M SFHCWAGY 15:35 | PROVIDERS: ATTEND Advanced Practice Midwife | DX: Z12.4 Encounter for screening for malignant neoplasm of cervix (principal) | CPT/HCPCS: 87624; G0123 ==

== ENCOUNTER → 2023-06-16 | Outpatient (REF) | LOC: M EMP 12:47 | PROVIDERS: ATTEND Family Medicine | DX: Z11.52 Encounter for screening for COVID-19 (principal) ==

== ENCOUNTER → 2023-11-20 | Outpatient (REF) | payer BC ==
[2023-11-20 20:23] LABS: GC DNA AMPLIFICATION NEGATIVE (NEGATIVE)
== END ==
LOC: M LAB REF 17:38
PROVIDERS: ATTEND Physician Assistant
DX: R30.0 Dysuria (principal)

== ENCOUNTER 2023-12-20 10:14 | Day surgery (SDC) | payer BC ==
[~2023-12-20] VITALS: Ht 162.6 cm; Wt 77.7 kg
[2023-12-20] MEDS ORDERED: LR 1,000 ML IV SCH ×3 (11:20→14:30)
[2023-12-20] MEDS ORDERED: MIDAZOLAM INJ 2MG/2ML VIAL As Ordered ONE (12:06)
[2023-12-20] MEDS ORDERED: LIDOCAINE 2% 100MG/5ML SDV (FOR ANES.) As Ordered ONE (12:06)
[2023-12-20] MEDS ORDERED: fentaNYL 100 MCG/2 ML INJECTION As Ordered ONE (12:06)
[2023-12-20] MEDS ORDERED: ONDANSETRON 4MG 2ML VIAL As Ordered ONE (12:06)
[2023-12-20] MEDS ORDERED: propofoL 200 MG/20 ML VIAL As Ordered ONE (12:06)
[2023-12-20] MEDS ORDERED: ROCURONIUM BROMIDE 50MG/5ML VIAL As Ordered ONE (12:06)
[2023-12-20] MEDS ORDERED: ACETAMINOPHEN 1000MG 100ML IV BAG As Ordered ONE (12:48)
[2023-12-20] MEDS ORDERED: KETOROLAC 60MG 2ML VIAL As Ordered ONE (13:37)
[2023-12-20] MEDS ORDERED: dexmedeTOMIDine (4MCG/ML)200MCG/50ML BTL (PRECEDEX) As Ordered ONE (13:37)
[2023-12-20] MEDS ORDERED: SUGAMMADEX SODIUM 500 MG/5 ML VIAL (BRIDION) As Ordered ONE (13:52)
[2023-12-20] MEDS ORDERED: fentaNYL 100 MCG/2 ML INJECTION IV PRN (14:05)
[2023-12-20] MEDS ORDERED: oxyCODONE 5MG TAB PO PRN (14:05)
[2023-12-20] MEDS ORDERED: HYDROMORPHONE HCL 0.5 MG/ 0.5 ML SYRINGE IV PRN (14:05)
[2023-12-20] MEDS ORDERED: HYDROcodone/APAP LIQUID 7.5-325MG 15ML UDC (LORTAB ELIXIR) PO PRN (14:30)
[2023-12-20] MEDS: ONDANSETRON 4MG 2ML VIAL IV PRN (14:31)
[2023-12-20 15:19] VITALS: BP 130/68; TEMP 97.9; O2SAT 98
== END 2023-12-20 15:38 | disposition home or self-care (01) ==
LOC: M SDC 10:14
PROVIDERS: ATTEND Otolaryngology
DX: J35.01 Chronic tonsillitis (principal)
CPT/HCPCS: 42826; 81025; 88302; J0131; J0665; J1100; J1885; J2250; J2405; J3010

== ENCOUNTER → 2024-07-30 | Outpatient (CLI) | payer BC ==
[2024-07-30 17:17] LABS: HEMATOCRIT 40.5 % (36.0-47.0); HEMOGLOBIN 13.7 g/dl (12.0-15.5); MEAN CORPUSCULAR HEMOGLOBIN 31.6 pg (27.0-33.0); MEAN CORPUSCULAR HGB CONC 33.8 g/dl (32.0-36.5); MEAN CORPUSCULAR VOLUME 93.3 fl (80.0-96.0); PLATELET COUNT, AUTOMATED 262 10^3/uL (150-450); RED BLOOD COUNT 4.34 10^6/uL (4.00-5.40); WHITE BLOOD COUNT 10.3 10^3/uL (4.0-10.0)
[2024-07-30 18:12] LABS: HIV 1&2 SCREEN NEGATIVE (NEGATIVE)
[2024-07-30 18:20] LABS: HEPATITIS C VIRUS ABY INDEX 0.03 INDEX (<0.8)
[2024-07-30 19:41] LABS: GC DNA AMPLIFICATION NEGATIVE (NEGATIVE)
== END ==
LOC: M PLALAB 15:11
PROVIDERS: ATTEND Advanced Practice Midwife
DX: Z34.81 Encounter for supervision of other normal pregnancy, first trimester (principal); Z3A.00 Weeks of gestation of pregnancy not specified

== ENCOUNTER → 2024-10-01 | Outpatient (CLI) | payer BC | LOC: M WHC 13:49 | PROVIDERS: ATTEND Advanced Practice Midwife | DX: Z34.82 Encounter for supervision of other normal pregnancy, second trimester (principal) ==

== ENCOUNTER → 2024-11-27 | Outpatient (CLI) | payer BC ==
[2024-11-27 14:36] LABS: Trichomonas vaginalis (AMP) NOT DETECTED (NEGATIVE)
[2024-11-27 15:00] LABS: GC DNA AMPLIFICATION NEGATIVE (NEGATIVE)
[2024-11-27 15:04] LABS: PLATELET COUNT, AUTOMATED 198 10^3/uL (150-450)
[2024-11-27 15:05] LABS: GLUCOSE CHALLENGE TEST 1 HOUR 150 MG/DL (LESS THAN 140)
[2024-11-27 15:38] LABS: HIV 1&2 SCREEN NEGATIVE (NEGATIVE)
[2024-11-27 15:46] LABS: HEPATITIS C VIRUS ABY INDEX < 0.02 INDEX (<0.8)
== END ==
LOC: M PLALAB 09:16
PROVIDERS: ATTEND Advanced Practice Midwife
DX: Z34.82 Encounter for supervision of other normal pregnancy, second trimester (principal); Z3A.00 Weeks of gestation of pregnancy not specified

== ENCOUNTER → 2024-12-12 | Outpatient (CLI) | payer BC | LOC: M LAB 06:55 | PROVIDERS: ATTEND Advanced Practice Midwife | DX: O99.810 Abnormal glucose complicating pregnancy (principal); Z3A.00 Weeks of gestation of pregnancy not specified ==

== ENCOUNTER → 2025-02-05 | Outpatient (REF) | payer BC | LOC: M SFHCWAGY 17:21 | PROVIDERS: ATTEND Advanced Practice Midwife | DX: Z36.89 Encounter for other specified antenatal screening (principal); Z3A.36 36 weeks gestation of pregnancy ==

== ENCOUNTER → 2025-02-07 | Outpatient (CLI) | payer BC | LOC: M WHC 12:34 | PROVIDERS: ATTEND Advanced Practice Midwife | DX: O24.419 Gestational diabetes mellitus in pregnancy, unspecified control (principal) ==

== ENCOUNTER 2025-02-27 07:38 | Inpatient (IN) | payer BC ==
[~2025-02-27] VITALS: Ht 162.6 cm; Wt 87.2 kg
[2025-02-27] VITALS (15 sets, daily range): BP systolic 114–140; BP diastolic 73–91
[2025-02-27] MEDS ORDERED: CARBOPROST TROMETHAMINE 250 MCG/ML AMP IM PRN (08:40)
[2025-02-27] MEDS ORDERED: OXYTOCIN DRIP 30 UNITS in IV 1 EA IV PRN (08:40)
[2025-02-27] MEDS ORDERED: LIDOCAINE 1% MDV 20 ML VIAL INFIL PRN (08:40)
[2025-02-27] MEDS ORDERED: OXYTOCIN INJ 10UNITS/ML 1ML VIAL IM PRN (08:40)
[2025-02-27] MEDS ORDERED: RA M500C PO (08:50)
[2025-02-27] MEDS ORDERED: VITA100065 PO (08:53)
[2025-02-27] MEDS: miSOPROStol 50 MCG 1/2 TABLET PO SCH (09:41)
[2025-02-27 09:43] LABS: PLATELET COUNT, AUTOMATED 166 10^3/uL (150-450)
[2025-02-27 10:16] LABS: LDH LACTATE DEHYDROGENASE 230 U/L (120-246)
[2025-02-27 10:18] LABS: ALT/SGPT 11 U/L (7.0-40); AST/SGOT 17 U/L (<34); CREATININE FOR GFR 0.52 MG/DL (0.55-1.30); GLOMERULAR FILTRATION RATE > 90.0 (>60)
[2025-02-27 11:59] LABS: HIV 1&2 SCREEN NEGATIVE (NEGATIVE)
[2025-02-27 12:06] LABS: HEPATITIS C VIRUS ABY INDEX < 0.02 INDEX (<0.8)
[2025-02-27 13:32] LABS: TOTAL PROTEIN,RANDOM URINE 23.3 MG/DL (0.0-14.0)
[2025-02-27] MEDS: LR 1,000 ML IV ONE (15:18)
[2025-02-27] MEDS ORDERED: diphenhydrAMINE 50 MG/ML VIAL IV PRN (16:00)
[2025-02-27] MEDS ORDERED: ONDANSETRON 4MG 2ML VIAL IV PRN (16:00)
[2025-02-27] MEDS ORDERED: NALOXONE INJ 0.4 MG/1 ML VIAL IV PRN (16:00)
[2025-02-27] MEDS ORDERED: EPIDURAL/PCA KEYS XX PRN (16:00)
[2025-02-27] MEDS ORDERED: LR 500 ML IV PRN (16:00)
[2025-02-27] MEDS: LR 1,000 ML IV SCH (16:09)
[2025-02-27] MEDS: FENTANYL/ROPIVACAINE/NACL BAG 100 ML EPIDURAL SCH (16:53)
[2025-02-27] MEDS: OXYTOCIN DRIP 30 UNITS in IV 1 EA IV SCH (18:00)
[2025-02-27] MEDS: TRANEXAMIC ACID INJection 1,000 MG in NS 100 ML IV PRN (22:08)
[2025-02-27] MEDS: OXYTOCIN DRIP 30 UNITS in IV 1 EA IV PRN (22:08)
[2025-02-27] MEDS ORDERED: IBUPROFEN 600 MG TAB PO PRN (22:30)
[2025-02-27] MEDS ORDERED: ACETAMINOPHEN 325 MG TAB PO PRN (22:30)
[2025-02-27] MEDS ORDERED: DIBUCAINE 1% OINTMENT 30 GM TOP PRN (22:30)
[2025-02-27] MEDS ORDERED: DOCUSATE SODIUM 100 MG CAPSULE PO PRN (22:30)
[2025-02-27] MEDS ORDERED: IBUPROFEN 800 MG TAB PO PRN (22:30)
[2025-02-27] MEDS ORDERED: ACETAMINOPHEN 500 MG TAB PO PRN (22:30)
[2025-02-28 00:34] VITALS: BP 128/69; O2SAT 99
[2025-02-28 06:00] VITALS: BP 110/80; O2SAT 97
[2025-02-28] MEDS: PRENATAL VITAMINS CHEWABLE TABLET PO SCH (07:55)
[2025-02-28 18:00] VITALS: BP 122/86; O2SAT 98
[2025-02-28] MEDS: MEASLES,MUMPS,RUBELLA VACCINE INJ (MMR-II) SC.IMMUN ONE (22:40)
[2025-02-28] MEDS: RHOGAM 300MCG (1500IU) INJ IM SCH (22:41)
[2025-03-01 05:48] VITALS: BP 120/78; O2SAT 98
== END 2025-03-01 14:25 | disposition home or self-care (01) | DRG 560 ==
LOC: M LDI 07:38 → M OBS 02-28 00:33
PROVIDERS: ADMIT Advanced Practice Midwife; ATTEND Advanced Practice Midwife
PROC: 10E0XZZ Delivery of Products of Conception, External Approach (ICD-10-PCS; principal; 2025-02-27)
PROC: 0HQ9XZZ Repair Perineum Skin, External Approach (ICD-10-PCS; 2025-02-27)
PROC: 3E033VJ Introduction of Other Hormone into Peripheral Vein, Percutaneous Approach (ICD-10-PCS; 2025-02-27)
PROC: 3E097GC Introduction of Other Therapeutic Substance into Nose, Via Natural or Artificial Opening (ICD-10-PCS; 2025-02-27)
DX: O24.420 Gestational diabetes mellitus in childbirth, diet controlled (principal); O70.0 First degree perineal laceration during delivery; Z37.0 Single live birth; Z3A.39 39 weeks gestation of pregnancy